=== PATIENT | female | born 1975 | race Two or more races ===

== ENCOUNTER 2017-05-20 12:23 | Emergency (ER) | payer MEDICAID ==
[~2017-05-20] VITALS: Ht 157.5 cm; Wt 81.6 kg
[2017-05-20 13:00] VITALS: BP 147/95
== END 2017-05-20 13:36 | disposition home or self-care (01) ==
LOC: ER 12:23
DX: N39.0 Urinary tract infection, site not specified (principal); Z86.73 Personal history of transient ischemic attack (TIA), and cerebral infarction without residual deficits; Z88.6 Allergy status to analgesic agent; Z98.51 Tubal ligation status
CPT/HCPCS: 81025

== ENCOUNTER 2019-11-06 12:57 | Emergency (ER) | payer MEDICAID ==
[~2019-11-06] VITALS: Ht 157.5 cm; Wt 79.4 kg
[2019-11-06 14:28] VITALS: BP 143/96
== END 2019-11-06 14:42 | disposition home or self-care (01) ==
LOC: ER 12:59
DX: J20.9 Acute bronchitis, unspecified (principal); J02.9 Acute pharyngitis, unspecified; R03.0 Elevated blood-pressure reading, without diagnosis of hypertension
CPT/HCPCS: 71046

== ENCOUNTER 2023-07-04 17:10 | Emergency (ER) | payer MEDICAID ==
[~2023-07-04] VITALS: Ht 157.5 cm; Wt 80.0 kg
[2023-07-04 18:41] VITALS: BP 130/85; PULSE 103; RESP 18; TEMP 97.9; O2SAT 98
[2023-07-04] MEDS ORDERED: CYCL-611 PO (20:19)
[2023-07-04] MEDS ORDERED: HYDROcodone-ACET 5/325MG TAB PO ONE (20:30)
== END 2023-07-04 22:01 | disposition home or self-care (01) ==
LOC: ER 17:10
DX: S23.3XXA Sprain of ligaments of thoracic spine, initial encounter (principal); E11.9 Type 2 diabetes mellitus without complications; Z98.890 Other specified postprocedural states; Z88.8 Allergy status to other drugs, medicaments and biological substances; Z79.899 Other long term (current) drug therapy; X58.XXXA Exposure to other specified factors, initial encounter; Y93.89 Activity, other specified; Y92.89 Other specified places as the place of occurrence of the external cause; Y99.8 Other external cause status
CPT/HCPCS: 72070

== ENCOUNTER 2024-02-15 07:03 | Emergency (ER) | payer MEDICAID ==
[~2024-02-15] VITALS: Ht 157.5 cm; Wt 80.0 kg
[~2024-02-15 07:03] MED LIST: CYCL-611 PO
[2024-02-15 08:06] VITALS: TEMP 98.2
[2024-02-15 09:26] LABS: COVID19 ANTIGEN SOFIA FIA NEGATIVE (NEGATIVE)
[2024-02-15 09:27] LABS: Rapid Influenza A Negative (Negative); Rapid Influenza B Negative (Negative)
[2024-02-15 09:38] VITALS: BP 144/97; PULSE 101; RESP 16; O2SAT 97
[2024-02-15] MEDS ORDERED: AUG875T PO (09:39)
[2024-02-15] MEDS ORDERED: BENZ100C97 PO (09:39)
[2024-02-15] MEDS ORDERED: ACET-1881 PO (09:39)
[2024-02-15] MEDS ORDERED: IBUP1TAB5 PO (09:39)
[2024-02-15] MEDS ORDERED: PROM1SOL4 PO (09:39)
== END 2024-02-15 09:39 | disposition home or self-care (01) ==
LOC: ER 07:03
DX: B34.9 Viral infection, unspecified (principal); Z20.822 Contact with and (suspected) exposure to COVID-19; Z98.51 Tubal ligation status; E11.9 Type 2 diabetes mellitus without complications
CPT/HCPCS: 36415; 87426; 87804

== ENCOUNTER 2025-01-16 09:48 | Emergency (ER) | payer MEDICAID ==
[~2025-01-16] VITALS: Ht 157.5 cm; Wt 71.7 kg
[~2025-01-16 09:48] MED LIST changes: +ACET-1881 PO; +AUG875T PO; +BENZ100C97 PO; +IBUP1TAB5 PO; +PROM1SOL4 PO
--- NOTE | 2025-01-16 10:35 | ED.PDOC ---
History of Present Illness(SKN HPI Comments 49-year-old female with a history of cardiac disorders, hypercholesteremia, hypertension, bronchitis, tubal litigation, diabetes, anemia presents with a chief complaint of an infected wound. Noticed discharge 3 days ago Patient had a revision L1-2 la laminectomy discectomy performed by Herb Prieto MD on December 20, 2024 at [facility]. Discharged home without antibiotics Denies fever chills nausea vomiting diarrhea Chief Complaint: Wound Check Time Seen by MD: 10:00 Primary Care Provider: UNKNOWN History of Present Illness: Nurses Notes, Medications, Allergies Allergies: Coded Allergies: Ibuprofen (Verified Allergy, Unknown, 08/06/16) Home Meds Active Scripts Acetaminophen (Acetaminophen) 325 Mg Tab, 325 MG PO QID for 7 Days, #28 TAB 0 Refills Prov:GLYNN CHA FRONT END UI DEVELOPER 02/15/24 Ibuprofen Micronized (Ibuprofen) 600 Mg Tab, 600 MG PO TIDPRN PRN for 10 Days, #30 TAB 0 Refills Prov:GLYNN CHA FRONT END UI DEVELOPER 02/15/24 Amoxicillin & Pot Clavulanate (AUGMENTIN TABLET) 875 Mg Tb, 875 MG PO BID for 5 Days, #10 TAB 0 Refills Prov:GLYNN CHA FRONT END UI DEVELOPER 02/15/24 Promethazine-Dm (Promethazine Dm 6.25-15 mg/5Ml) 1 Maru Maru, 5 ML PO TID for 10 Days, #150 ML 0 Refills Prov:GLYNN CHA FRONT END UI DEVELOPER 02/15/24 Benzonatate (Benzonatate) 100 Mg Cap, 1 CAP PO TID for 10 Days, #30 CAP 0 Refills Prov:GLYNN CHA FRONT END UI DEVELOPER 02/15/24 Cyclobenzaprine HCl (Cyclobenzaprine Hydrochlo) 10 Mg Tab, 1 TAB PO Q8HR, #15 TAB As needed for muscle spasm Prov:TIMI WOO FRONT END UI DEVELOPER 07/04/23 Information Source: Patient Mode of Arrival: Ambulatory Past Medical History PAST MEDICAL HISTORY: DM, Denies Surgical History: 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: 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 KICK PRESS OPERATOR History Family History Family History: Unobtainable Social History Smoker: Non-Smoker Alcohol: Denies ETOH Use Drugs: Denies Drug Use Lives In: Home All Other Systems: Reviewed and Negative (PER HPI) Physical Exam General Appearance: No Apparent Distress, Normal HEENT: Normal ENT Inspection, Pharynx Normal, TMs Normal Neck: Full Range of Motion, Non-Tender, Normal, Normal Inspection Respiratory: Chest Non-Tender, Lungs Clear, No Accessory Muscle Use, No Respiratory Distress, Normal Breath Sounds Cardiovascular: No Edema, No JVD, No Murmur, No Gallop, Normal Peripheral Pulses, Regular Rate/Rhythm Breast Exam: Deferred Gastrointestinal: No Organomegaly, Non Tender, No Pulsatile Mass, Normal Bowel Sounds, Soft Genitalia: Deferred Pelvic: Deferred Rectal: Deferred Extremities: No calf tenderness, Normal capillary refill, Normal inspection, Normal range of motion, Non-tender, No pedal edema Musculoskeletal : Apperance: Normal Neurologic: Alert, sales strategy manager II-XII nml as Tested, No Motor Deficits, Normal Affect, Normal Mood, No Sensory Deficits Cerebellar Function: Normal Reflexes: Normal Skin: Dry, Normal Color, Warm Lymphatic: No Adenopathy Was a procedure done? Was a procedure done?: No Images 1 - Surgical wound. Mild/moderate yellow discharge. Mild surrounding erythema. No fluctuance. Differential Diagnosis (INTG) Differential Diagnosis: Cellulitis Differential Diagnosis: Abscess X-Ray, Labs, Meds, VS Vital Signs Date Time Temp Pulse Resp B/P (MAP) Pulse Ox O2 Delivery O2 Flow Rate FiO2 01/16/25 14:19 98.6 108 19 125/82 (96) 97 98.6 01/16/25 12:03 98.6 01/16/25 11:01 100.0 01/16/25 10:50 120 18 94 Room Air 01/16/25 10:50 100.0 120 18 129/93 (105) 94 100.0 01/16/25 10:00 98.2 133 15 129/93 (105) 96 98.2 Lab Test 01/16/25 10:47 01/16/25 10:24 Range/Units White Blood Count 9.8 4.4-10.8 10^3/uL Red Blood Count 5.87 H 4.0-5.20 10^6/uL Hemoglobin 14.7 12.2-16.2 g/dL Hematocrit 44.1 36.0-46.0 % Mean Corpuscular Volume 75.2 L 80.0-100.0 fL Mean Corpuscular Hemoglobin 25.1 L 28.0-32.0 pg Mean Corpuscular Hemoglobin Concent 33.4 32.0-36.0 g/dL Red Cell Distribution Width 14.7 H 11.8-14.3 % Platelet Count 347 140-450 10^3/uL Mean Platelet Volume 8.4 6.9-10.8 fL Neutrophils (%) (Auto) 69.5 37.0-80.0 % Lymphocytes (%) (Auto) 22.5 10.0-50.0 % Monocytes (%) (Auto) 7.2 0.0-12.0 % Eosinophils (%) (Auto) 0.4 0.0-7.0 % Basophils (%) (Auto) 0.4 0.0-2.0 % Neutrophils # (Auto) 6.8 1.6-8.6 10 ^3/uL Lymphocytes # (Auto) 2.2 0.4-5.4 10 ^3/uL Monocytes # (Auto) 0.7 0-1.3 10 ^3/uL Eosinophils # (Auto) 0 0-0.8 10 ^3/uL Basophils # (Auto) 0 0-0.2 10 ^3/uL Nucleated Red Blood Cells 0.1 % Sodium Level 139 136-145 mmol/L Potassium Level 3.7 3.5-5.1 mmol/L Chloride Level 103 98-107 mmol/L Carbon Dioxide Level 26 20-31 mmol/L Anion Gap 10 5-15 Blood Urea Nitrogen 5 L 9-23 mg/dL Creatinine 0.67 0.550-1.02 mg/dL Glomerular Filtration Rate Calc 108 >90 mL/min BUN/Creatinine Ratio 7.5 L 10.0-20.0 Serum Glucose 116 H 74-106 mg/dL Lactic Acid Level 1.3 0.4-2.0 mmol/L Calcium Level 10.9 H 8.7-10.4 mg/dL Urine Color Light-yellow Yellow Urine Clarity Clear Clear Urine pH 6.5 5.0-9.0 Urine Specific [place] 1.005 1.001-1.035 Urine Protein Negative Negative Urine Ketones Negative Negative Urine Blood Negative Negative /uL Urine Nitrite Negative Negative Urine Bilirubin Negative Negative Urine Urobilinogen Normal Negative mg/dL Urine Leukocyte Esterase Negative Negative /uL Urine RBC None seen 0 - 4 /hpf Urine Microscopic WBC 1 0-5 /HPF Urine Squamous Epithelial Cells Few <5 /hpf Urine Bacteria Few H None Seen /hpf Urine Glucose Normal Normal mg/dL Current Medications Medications (Trade) Dose Ordered Sig/Sandra Route Start Time Stop Time Status Last Admin Sodium Chloride 1,000 ml @ 1,000 mls/hr Q1H ONCE IV 01/16/25 10:45 01/16/25 11:44 DC 01/16/25 11:01 Ceftriaxone Sodium/Dextrose 50 ml @ 50 mls/hr ONCE ONCE IV 01/16/25 10:45 01/16/25 11:44 DC 01/16/25 11:47 Acetaminophen (Tylenol Tablet) 650 mg ONCE ONCE PO 01/16/25 11:00 01/16/25 11:01 DC 01/16/25 11:01 Vancomycin HCl 350 ml @ 200 mls/hr ONCE ONCE IV 01/16/25 16:45 01/16/25 18:29 01/16/25 17:21 [place] [address] Ph: [phone] DIAGNOSTIC IMAGING Diagnostic Imaging Report : [id number] Signed PATIENT: AGATA ZAPATA YACCT: [id number] UNIT: [id number] : 1975 LOC: ER ROOM / BED: / AGE / SEX: 49 / F ADM STATUS: REG ER SERVICE 1136 ORDERING PHYSICIAN: GLYNN CHA NP PROCEDURE(s): LS1CT - LS SPINE W CONTRAST REASON: Infected surgical wound. R/o abscess formation ORDER NUMBER(s): [id number], ACCESSION NUMBER(s): [id number] CT LS SPINE W CONTRAST Date: 01/16/2025 03:13 PM History: Infected surgical wound. R/o abscess formation Comparison: None TECHNIQUE: CT LS SPINE W CONTRAST: Multiple axial CT images of the lumbosacral spine were obtained using bone algorithm. Axial and coronal reformatting was done. Bone and soft tissue windows were reviewed. Radiation Dose Information: CT Dose: CTDI volume is 34.03 mGy. Dose-length product is 1139.84 mGy*cm Omnipaque 300: 100 mL FINDINGS: No CT evidence of definite acute fracture, spinal dislocation, or significant appearing acute subluxation is seen. The visualized paraspinal soft tissues are grossly unremarkable. T12-L1 left-sided laminectomy with calcified bony fragment in the central canal measures 9 - 20 mm. In the posterior soft tissues L1-L2 There is no evidence of central spinal canal or neuroforaminal stenosis. L2-L3 There is no evidence of central spinal canal or neuroforaminal stenosis. L3-L4 There is no evidence of central spinal canal or neuroforaminal stenosis. L4-L5 There is no evidence of central spinal canal or neuroforaminal stenosis. L5-S1 There is no evidence of central spinal canal or neuroforaminal stenosis. IMPRESSION: 1. Left laminectomy at L1-2 2. There are 2 small rim enhancing lesions in the subcutaneous tissues at this level (L1-2) 1 measures 9 mm the other small rim enhancing collection adjacent measures 8.59 mm. This may represent small subcutaneous abscesses. 3. There is a bony fragment in the central canal measuring between 9 and [address] scans at this medical facility are performed using dose modulation techniques as appropriate to a performed exam including the following: Automated exposure control was utilized; adjustment of the MA and/or KV according to patient size; and use of iterative reconstruction technique. ATED BY: SYLVIA BUTLER Jr., DO DICTATED DATE/TIME: 01/16/251554 SIGNED BY: SYLVIA BUTLER Jr., SIGNED DATE/TIME: 01/16/251554 CC: X-Ray, Labs, Meds, VS Comment 49-year-old female with a history of cardiac disorders, hypercholesteremia, hypertension, bronchitis, tubal litigation, diabetes, anemia presents with a chief complaint of an infected wound. . Presented tachy and febrile. Labs and imaging ordered. History and findings consistent with subcutaneous abscess Lumbar CT shows There are 2 small rim enhancing lesions in the subcutaneous tissues at this level (L1-2) 1 measures 9 mm the other small rim enhancing collection adjacent measures 8.59 mm. This may represent small subcutaneous abscesses. WBC 9.8, RBC 5.87, hemoglobin 14.7, neutrophils 69.5, sodium 139, potassium 3.7, creatinine 0.67, EGFR 108, serum glucose 116, lactic 1.3 Continues to remain slightly tachycardic. Fever improved after Tylenol was given In the ER the patient was also given 1 L normal saline bolus, 2 g Rocephin and Tylenol x1 with no adverse reactions. Admit due to immune compromise. Ordered Vanco Per Pharmacy. Awaiting Admission at this time. The patient's workup reveals that the patient needs further treatment for the above medical conditions. Patient verbalized understanding of the above and is awaiting further evaluation by the admitting service. 17:46 Consulted with Hospitalist and advised pt needs higher level of care = Spoke with [facility] Supervisor: Kentrell at 18:06. Waiting for a call back from inbound call center agent Surgeon at this time. Located in: [facility] Address: [address] [place] [address] 18:19: Patient endorsed to Dr. Osei Time of 1ST Reevaluation: 12:39 Reevaluation 1ST: Unchanged Time of 2ND Reevaluation: 16:12 Reevaluation 2ND: Improved Patient Education/Counseling: Diagnosis, Treatment Family Education/Counseling: Diagnosis, Treatment Departure 1 Departure Time of Disposition: 16:29 Impression: Primary Impression: Abscess Disposition: 09 ADMITTED INPATIENT Condition: Serious Critical Care Note Critical Care Time?: No Stability Stability form required: No Heart Score Heart Score: Heart Score Response (Comments) Value History N/A 0 EKG N/A 0 Age N/A 0 Risk Factors N/A 0 Troponin N/A 0 Total 0 GLYNN CHA NP January 16, 2025 10:35
[2025-01-16] MEDS: ACETAMINOPHEN 325 MG TAB PO ONE (11:01)
[2025-01-16] MEDS: SODIUM CHLORIDE 0.9% 1,000 ML IV ONE (11:01)
[2025-01-16 11:10] LABS: Basophils # (auto) 0 10 ^3/uL (0-0.2); Basophils % (auto) 0.4 % (0.0-2.0); Eosinophils # (auto) 0 10 ^3/uL (0-0.8); Eosinophils % (auto) 0.4 % (0.0-7.0); Lymphocytes # (auto) 2.2 10 ^3/uL (0.4-5.4); Lymphocytes % (auto) 22.5 % (10.0-50.0); Monocytes # (auto) 0.7 10 ^3/uL (0-1.3); Nucleated Red Blood Cells % 0.1 %
[2025-01-16 11:11] LABS: Hematocrit 44.1 % (36.0-46.0); Hemoglobin 14.7 g/dL (12.2-16.2); Mean Corpuscular Hemoglobin 25.1 pg (28.0-32.0); Mean Corpuscular Hgb Conc. 33.4 g/dL (32.0-36.0); Mean Corpuscular Volume 75.2 fL (80.0-100.0); Monocytes % (auto) 7.2 % (0.0-12.0); Neutrophils # (auto) 6.8 10 ^3/uL (1.6-8.6); Neutrophils % (auto) 69.5 % (37.0-80.0); Platelet Count (auto) 347 10^3/uL (140-450); Red Blood Cells 5.87 10^6/uL (4.0-5.20); Red Cell Distribution Width 14.7 % (11.8-14.3); White Blood Cell 9.8 10^3/uL (4.4-10.8)
[2025-01-16 11:19] LABS: Urine Bacteria FEW /hpf (None Seen); Urine Blood Negative /uL (Negative); Urine Clarity Clear (Clear); Urine Color Light-Yellow (Yellow); Urine Protein, UAD Negative (Negative); Urine Specific Gravity 1.005 (1.001-1.035); Urine Squamous Epithelial Cell FEW /hpf (<5); Urine Urobilinogen Normal (Negative); Urine WBC 1 /HPF (0-5); Urine pH 6.5 (5.0-9.0)
[2025-01-16 11:22] LABS: Chloride 103 mmol/L (98-107); Potassium 3.7 mmol/L (3.5-5.1); Sodium 139 mmol/L (136-145)
[2025-01-16 11:23] LABS: Anion Gap 10 (5-15); Carbon Dioxide 26 mmol/L (20-31)
[2025-01-16 11:29] LABS: BUN/Creatinine Ratio 7.5 (10.0-20.0)
[2025-01-16 11:30] LABS: Blood Urea Nitrogen 5 mg/dL (9-23); Calcium 10.9 mg/dL (8.7-10.4); Glucose 116 mg/dL (74-106)
[2025-01-16] MEDS: cefTRIAXone 2GM/50ML D5W 50 ML IV ONE (11:47)
[2025-01-16] MEDS: IOHEXOL 300 MG/ML 100ML BOTTLE IJ ONE (12:37)
--- NOTE | 2025-01-16 15:57 | DVH ---
CT LS SPINE W CONTRAST Date: 01/16/2025 03:13 PM History: Infected surgical wound. R/o abscess formation Comparison: None TECHNIQUE: CT LS SPINE W CONTRAST: Multiple axial CT images of the lumbosacral spine were obtained using bone algorithm. Axial and coronal reformatting was done. Bone and soft tissue windows were reviewed. Radiation Dose Information: CT Dose: CTDI volume is 34.03 mGy. Dose-length product is 1139.84 mGy*cm Omnipaque 300: 100 mL FINDINGS: No CT evidence of definite acute fracture, spinal dislocation, or significant appearing acute subluxa tion is seen. The visualized paraspinal soft tissues are grossly unremarkable. T12-L1 left-sided laminectomy with calcified bony fragment in the central canal measures 9 - 20 mm. I n the posterior soft tissues L1-L2 There is no evidence of central spinal canal or neuroforaminal stenosis. L2-L3 There is no evidence of central spinal canal or neuroforaminal stenosis. L3-L4 There is no evidence of central spinal canal or neuroforaminal stenosis. L4-L5 There is no evidence of central spinal canal or neuroforaminal stenosis. L5-S1 There is no evidence of central spinal canal or neuroforaminal stenosis. IMPRESSION: 1. Left laminectomy at L1-2 2. There are 2 small rim enhancing lesions in the subcutaneous tissues at this level (L1-2) 1 measure s 9 mm the other small rim enhancing collection adjacent measures 8.59 mm. This may represent small subcutaneous abscesses. 3. There is a bony fragment in the central canal measuring between 9 and [address] scans at this medical facility are performed using dose modulation techniques as appropriat e to a performed exam including the following: Automated exposure control was utilized; adjustment of the MA and/or KV according to patient size; and use of iterative reconstruction technique.
--- NOTE | 2025-01-16 16:09 | DVH ---
EXAM: CT CT T SPINE WITH CONTRAST HISTORY: Infected surgical wound. R/o abscess formation COMPARISON: None CTDIvol 36.17 mGy, DLP 1386.15 mGy*cm. TECHNIQUE: Multiple axial CT images of the spine were obtained using bone algorithm. Axial and coron al reformatting was done. Bone and soft tissue windows were reviewed. FINDINGS: No CT evidence of definite acute fracture, spinal dislocation, or significant appearing acute subluxa tion is seen. The visualized paraspinal soft tissues are grossly unremarkable in the thoracic region. Multilevel degenerative changes of the spine. IMPRESSION: 1. No evidence of abscess in the thoracic spine region. No acute CT abnormality of the thoracic spine . 2. Please refer to dedicated CT lumbar spine for further findings.
[2025-01-16] MEDS ORDERED: VANCOMYCIN PER PHARMACY 0 MG IV SCH (16:30)
[2025-01-16] MEDS: VANCOMYCIN 1.75GM/350ML 350 ML IV ONE (17:21)
--- NOTE | 2025-01-16 17:46 | DVHINCON2 ---
Date Seen: January 16, 2025 Referring Physician glynn paz History of Present Illness 49-year-old female with a history of cardiac disorders, hypercholesteremia, hypertension, bronchitis, tubal litigation, diabetes, anemia presents with a chief complaint of an infected wound. Noticed discharge 3 days ago Patient had a revision L1-2 la laminectomy discectomy performed by Herb Prieto MD on December 20, [address] [facility]. Discharged home without antibiotics Denies fever chills nausea vomiting diarrhea Allergies: Coded Allergies: Ibuprofen (Verified Allergy, Unknown, 08/06/16) Home Meds Active Scripts Acetaminophen (Acetaminophen) 325 Mg Tab, 325 MG PO QID for 7 Days, #28 TAB 0 Refills Prov:GLYNN PAZ WHEEL ASSEMBLER 02/15/24 Ibuprofen Micronized (Ibuprofen) 600 Mg Tab, 600 MG PO TIDPRN PRN for 10 Days, #30 TAB 0 Refills Prov:GLYNN PAZ NP 02/15/24 Amoxicillin & Pot Clavulanate (AUGMENTIN TABLET) 875 Mg Tb, 875 MG PO BID for 5 Days, #10 TAB 0 Refills Prov:GLYNN PAZ NP 02/15/24 Promethazine-Dm (Promethazine Dm 6.25-15 mg/5Ml) 1 Maru Maru, 5 ML PO TID for 10 Days, #150 ML 0 Refills Prov:GLYNN PAZ NP 02/15/24 Benzonatate (Benzonatate) 100 Mg Cap, 1 CAP PO TID for 10 Days, #30 CAP 0 Refills Prov:GLYNN PAZ NP 02/15/24 Cyclobenzaprine HCl (Cyclobenzaprine Hydrochlo) 10 Mg Tab, 1 TAB PO Q8HR, #15 TAB As needed for muscle spasm Prov:TIMI WOO Q WHEEL ASSEMBLER 07/04/23 Current Medications Current Medications Medications (Trade) Dose Ordered Sig/Sandra Route PRN Reason Start Time Stop Time Status Last Admin Vancomycin HCl 0 ml @ 0 mls/hr UD IV 01/16/25 16:30 Review of Systems As HPI Vital Signs Vital Signs Date Time Temp Pulse Resp B/P (MAP) Pulse Ox O2 Delivery O2 Flow Rate FiO2 01/16/25 14:19 98.6 108 19 125/82 (96) 97 98.6 01/16/25 10:50 Room Air Physical Exam GEN: Healthy appearing, well-developed, NAD. HEENT: NC/AT; MMM. CV: RRR, no m/r/g. LUNGS: CTAB, no w/r/c. ABD: Soft, NT/ND, NBS, no masses or organomegaly. EXT: skin Warm, well perfused. no rashes. No clubbing, cyanosis, or edema. Lower back incision with purulent drainage NEURO: Ambulating with no limitations. No focal deficits. Labs/Diagnostic Data Labs Test 01/16/25 10:47 01/16/25 10:24 Range/Units White Blood Count 9.8 4.4-10.8 10^3/uL Red Blood Count 5.87 H 4.0-5.20 10^6/uL Hemoglobin 14.7 12.2-16.2 g/dL Hematocrit 44.1 36.0-46.0 % Mean Corpuscular Volume 75.2 L 80.0-100.0 fL Mean Corpuscular Hemoglobin 25.1 L 28.0-32.0 pg Mean Corpuscular Hemoglobin Concent 33.4 32.0-36.0 g/dL Red Cell Distribution Width 14.7 H 11.8-14.3 % Platelet Count 347 140-450 10^3/uL Mean Platelet Volume 8.4 6.9-10.8 fL Neutrophils (%) (Auto) 69.5 37.0-80.0 % Lymphocytes (%) (Auto) 22.5 10.0-50.0 % Monocytes (%) (Auto) 7.2 0.0-12.0 % Eosinophils (%) (Auto) 0.4 0.0-7.0 % Basophils (%) (Auto) 0.4 0.0-2.0 % Neutrophils # (Auto) 6.8 1.6-8.6 10 ^3/uL Lymphocytes # (Auto) 2.2 0.4-5.4 10 ^3/uL Monocytes # (Auto) 0.7 0-1.3 10 ^3/uL Eosinophils # (Auto) 0 0-0.8 10 ^3/uL Basophils # (Auto) 0 0-0.2 10 ^3/uL Nucleated Red Blood Cells 0.1 % Sodium Level 139 136-145 mmol/L Potassium Level 3.7 3.5-5.1 mmol/L Chloride Level 103 98-107 mmol/L Carbon Dioxide Level 26 20-31 mmol/L Anion Gap 10 5-15 Blood Urea Nitrogen 5 L 9-23 mg/dL Creatinine 0.67 0.550-1.02 mg/dL Glomerular Filtration Rate Calc 108 >90 mL/min BUN/Creatinine Ratio 7.5 L 10.0-20.0 Serum Glucose 116 H 74-106 mg/dL Lactic Acid Level 1.3 0.4-2.0 mmol/L Calcium Level 10.9 H 8.7-10.4 mg/dL Urine Color Light-yellow Yellow Urine Clarity Clear Clear Urine pH 6.5 5.0-9.0 Urine Specific [place] 1.005 1.001-1.035 Urine Protein Negative Negative Urine Ketones Negative Negative Urine Blood Negative Negative /uL Urine Nitrite Negative Negative Urine Bilirubin Negative Negative Urine Urobilinogen Normal Negative mg/dL Urine Leukocyte Esterase Negative Negative /uL Urine RBC None seen 0 - 4 /hpf Urine Microscopic WBC 1 0-5 /HPF Urine Squamous Epithelial Cells Few <5 /hpf Urine Bacteria Few H None Seen /hpf Urine Glucose Normal Normal mg/dL Plan/Recommendation 49-year-old female with a history of cardiac disorders, hypercholesteremia, hypertension, bronchitis, tubal litigation, diabetes, anemia presents with a chief complaint of an infected wound. . Presented tachy and febrile. Labs and imaging ordered. History and findings consistent with subcutaneous abscess Lumbar CT shows There are 2 small rim enhancing lesions in the subcutaneous tissues at this level (L1-2) 1 measures 9 mm the other small rim enhancing colle ction adjacent measures 8.59 mm. This may represent small subcutaneous abscesses. WBC 9.8, RBC 5.87, hemoglobin 14.7, neutrophils 69.5, sodium 139, potassium 3.7, creatinine 0.67, EGFR 108, serum glucose 116, lactic 1.3 Continues to remain slightly tachycardic. Fever improved after Tylenol was given In the ER the patient was also given 1 L normal saline bolus, 2 g Rocephin and Tylenol x1 with no adverse reactions. Admit due to immune compromise Diagnosis: Recent laminectomy, with current subcutaneous abscesses, postsurgical complication Sepsis due to above Tachycardia Febrile illness plan: Consulted hospitalist admissions, reason for consult to admit patient for subcutaneous abscess in the history of recent spinal surgery at [facility] on December 20, 2024. I have spoken with on-call orthopedist Dr. Walker. [facility] also does not have on-call spinal orthopedic surgery. Surgery declines to intervene patient. Patient would benefit from ER to ER transfer at this point. Recommend continuing IV antibiotics and transferred to primary surgeon at [facility]. Internal medicine/hospital medicine/admissions we will sign off at this point. Please feel free to reconsult if other issues she will arise. Pat Contreras MD 01/16/2025 Plan discussed with: Patient, Other Date of Service: January 16, 2025 Billing Provider: PAT KILPATRICK MD Common Visit Codes: CONSULT ONLY Consultation Codes: [id number] CONSULT <45MIN PAT KILPATRICK MD January 16, 2025 17:46
[2025-01-16 18:26] VITALS: BP 127/85; PULSE 105; RESP 17; TEMP 97.4; O2SAT 97
[2025-01-17] MEDS ORDERED: VANCOMYCIN 1GM/200ML PM 200 ML IV SCH (05:00)
== END 2025-01-16 20:04 | disposition home or self-care (01) ==
LOC: ER 09:48
DX: L02.212 Cutaneous abscess of back [any part, except buttock and flank] (principal); E11.9 Type 2 diabetes mellitus without complications; E78.00 Pure hypercholesterolemia, unspecified; I10 Essential (primary) hypertension; Z79.899 Other long term (current) drug therapy; Z98.51 Tubal ligation status; Z88.6 Allergy status to analgesic agent
CPT/HCPCS: 36415; 72129; 72132; 80048; 81001; 83605; 85025; 87040; 87205; 96361; 96365; 96367; 99285; J0696; J3372; J7030; Q9967; 87077; 87186